=== PATIENT | female | born 1955 | race Caucasian/White ===

== ENCOUNTER 2018-03-17 14:21 | Emergency (ER) | payer SELFPAY ==
[~2018-03-17] VITALS: Ht 162.6 cm; Wt 75.0 kg
[2018-03-17 14:32] VITALS: Ht 162.6 cm; Wt 75.0 kg
[2018-03-17] MEDS ORDERED: FER325 PO (14:56)
[2018-03-17] MEDS ORDERED: CALC-686 PO (14:57)
[2018-03-17] MEDS ORDERED: BUDE3CAP PO ×3 (14:59→15:00)
[2018-03-17 16:20] VITALS: BP 152/91; PULSE 81; RESP 20
--- NOTE | 2018-03-17 20:12 | ERD ---
ER Documentation Chief Complaint Chief Complaint CP HPI This is a 63-year-old female who states she is a registered nurse and is an [employer] and her country of [place]. She indicates that she has a history of Crohn's disease and recently had been changed from Humira to Inflectra. She states her first dose of an inflectra was several days ago. She was informed by her GI physician that this could be an adverse effect being the chest pain. The patient states that 2 hours ago the patient developed a dull achy pain on her chest wall. She states it was exacerbated when she moves her left or right arm. The pain did not radiate to the back. She states she has had no fevers or shaking or chills. She denies a productive or nonproductive cough. She denies any rectal bleeding. She is currently on steroids for her Crohn's disease and has been compliant with her medications which includes budesonide. The patient has no family history of coronary artery disease. She denies tobacco use. She states the pain is 2 out of 10 in intensity. ROS All systems reviewed and are negative except as per history of present illness. Medications Home Meds Reported Medications Budesonide EC* (Budesonide EC*) 3 Mg Capdr...er, 3 MG PO DAILY for 3rd, TAB FOR 2 WEEKS 03/17/18 Budesonide EC* (Budesonide EC*) 3 Mg Capdr...er, 9 MG PO QAM for 1st , TAB FOR 4 WEEKS 03/17/18 Budesonide EC* (Budesonide EC*) 3 Mg Capdr...er, 6 MG PO DAILY for 2nd, TAB for 2 weeks 03/17/18 Calcium Carbonate/Vitamin D3 (Calcium 500 mg Chewable Tablet) 1 Each Tab.chew, 2 EACH PO DAILY, TAB.CHEW 03/17/18 Ferrous Sulfate* (Ferrous Sulfate*) 325 Mg Tabec, 325 MG PO DAILY, TAB 03/17/18 Allergies Allergies: Coded Allergies: codeine (Unverified Allergy, Unknown, 03/17/18) levofloxacin (Unverified Allergy, Unknown, 03/17/18) PMhx/Soc Medical and Surgical Hx: pt denies Medical Hx, pt denies Surgical Hx Hx Alcohol Use: No Hx Substance Use: No Hx Tobacco Use: No Smoking Status: Never smoker Physical Exam Vitals Vital Signs Date Temp Pulse Resp B/P (MAP) Pulse Ox O2 O2 Flow FiO2 Time Delivery Rate 03/17/18 81 20 152/91 99 Room Air 16:20 (111) 03/17/18 98.1 98 18 174/88 99 14:32 (116) Physical Exam Constitutional:Well-developed. Well-nourished. HEENT:Normocephalic. Atraumatic.Pupils were equal round reactive to light. Moist mucous membranes.No tonsillar exudates. Neck: No nuchal rigidity. No lymphadenopathy. No posterior cervical spine tenderness or step-offs. Respiratory: Not using accessory muscles of respiration.Lungs were clear to auscultation bilaterally. No rhonchi. No rales. No wheezing. Cardiovascular: Regular rate regular rhythm.No murmurs. No rubs were appreci ated.S1, S2 normal. Distal pulses are palpable 2+ bilaterally. Bilateral reproducible chest wall tenderness with no crepitus no ecchymosis no flail chest GI: Abdomen was soft. Nontender. Non Distended. No pulsatile abdominal masses or bruits. No rebound. No guarding. Bowel sounds were present and normal. Muscle skeletal: Full range of motion of both the upper and lower extremities bilaterally.Normal muscle tone.No assymetrical calf tenderness or swelling. Skin: No petechia, no purpura. No lesions on the palms or the soles of the feet. No maculopapular rash. NEURO: Patient was alert, awake, orientated x3.No facial droop. Gait observed and normal with no ataxia.Speech had regular rate and rhythm. No focal neurological deficits. Result Diagram: 03/17/18 1524 03/17/18 1524 Results 24 hrs Laboratory Tests Test 03/17/18 15:24 White Blood Count 11.7 10^3/ul Red Blood Count 3.67 10^6/ul Hemoglobin 9.7 g/dl Hematocrit 31.1 % Mean Corpuscular Volume 84.7 fl Mean Corpuscular Hemoglobin 26.4 pg Mean Corpuscular Hemoglobin Concent 31.2 g/dl Red Cell Distribution Width 13.4 % Platelet Count 535 10^3/UL Mean Platelet Volume 8.6 fl Immature Granulocytes % 0.300 % Neutrophils % 54.3 % Lymphocytes % 32.6 % Monocytes % 5.5 % Eosinophils % 6.9 % Basophils % 0.4 % Nucleated Red Blood Cells % 0.0 /100WBC Immature Granulocytes # 0.040 10^3/ul Neutrophils # 6.4 10^3/ul Lymphocytes # 3.8 10^3/ul Monocytes # 0.6 10^3/ul Eosinophils # 0.8 10^3/ul Basophils # 0.1 10^3/ul Nucleated Red Blood Cells # 0.0 10^3/ul Prothrombin Time 13.0 Sec Prothrombin Time Ratio 1.0 INR International Normalized Ratio 0.97 Activated Partial Thromboplast Time 35.1 Sec Sodium Level 138 mmol/L Potassium Level 4.0 mmol/L Chloride Level 103 mmol/L Carbon Dioxide Level 27 mmol/L Anion Gap 8 Blood Urea Nitrogen 17 mg/dl Creatinine 0.76 mg/dl Est Glomerular Filtrat Rate mL/min > 60 mL/min Glucose Level 104 mg/dl Calcium Level 9.6 mg/dl Total Bilirubin 0.0 mg/dl Direct Bilirubin 0.00 mg/dl Indirect Bilirubin 0.0 mg/dl Aspartate Amino Transf (AST/SGOT) 23 IU/L Alanine Aminotransferase (ALT/SGPT) 26 IU/L Alkaline Phosphatase 134 IU/L Creatine Kinase 22 IU/L Creatine Kinase Index 1.0 Creatinine Kinase MB (Mass) 0.23 ng/ml Troponin I < 0.012 ng/ml B-Type Natriuretic Peptide 162 PG/ML Total Protein 7.9 g/dl Albumin 4.4 g/dl Globulin 3.50 g/dl Albumin/Globulin Ratio 1.25 Procedures/MDM The patient presented to the emergency department complaining of chest pain. My clinical evaluation and workup was to distinguish minor causes of chest pain from acute life threatening cardiopulmonary causes such as myocardial infarction, pulmonary embolism, aortic dissection, esophageal rupture, cardiac tamponade, The patient was placed on a nurse monitoring, continuous pulse oximetry. The patient was refusing a chest radiograph. However she had no abnormal findings to suggest an infiltrate or pneumothorax on physical exam 12 Lead EKG tracing ordered and reviewed by myself showed: Normal sinus rhythm of 79 bpm and no arrhythmia. MT interval normal. QRS duration normal. No ST segment elevation No ST segment depression. No changes consistent with acute ischemia. The patients chest pain was reproduced by palpation and horizontal flexion of the arms. In addition I also indicated the patient that this could be result of an adverse reaction to her Crohn's disease medication inflectra vs pain as a result of inflammation of the skin and subcutaneous structures of the chest wall versus myocardial ischemia. I felt the patient had low-risk chest pain and could therefore be safely discharged with close follow-up. She indicates she will follow-up with her GI physician. Departure Diagnosis: Primary Impression: Costochondritis Condition: Fair Patient Instructions: Chest Wall Pain, Costochondritis AME VELASCO MD Mar 17, 2018 20:12
== END 2018-03-17 16:36 | disposition home or self-care (01) ==
LOC: E/R 14:21
DX: M94.0 Chondrocostal junction syndrome [Tietze] (principal); R40.2142 Coma scale, eyes open, spontaneous, at arrival to emergency department; R40.2362 Coma scale, best motor response, obeys commands, at arrival to emergency department
CPT/HCPCS: 80053; 82550; 82553; 83880; 84484; 85025; 85610; 85730; 93005